=== PATIENT | male | born 1995 | race Caucasian/White ===

== ENCOUNTER 2022-12-29 13:25 | Emergency (ER) | payer BC ==
[~2022-12-29] VITALS: Ht 190.5 cm; Wt 90.7 kg
[2022-12-29 13:27] VITALS: BP 139/65
--- NOTE | 2022-12-29 13:41 | NUR ---
PT AMB TO BED 11.
[2022-12-29] MEDS ORDERED: KETOROLAC 30 MG/ML VIAL IM ONE (13:50)
[2022-12-29] MEDS ORDERED: IBUP-2213 PO (15:05)
[2022-12-29] MEDS ORDERED: LID5T TP (15:08)
--- NOTE | 2022-12-29 15:10 | NUR ---
ulnar gutter splint applied to R wrist, hand
--- NOTE | 2022-12-29 15:17 | NUR ---
Patient discharged with v/s stable. Written and verbal after care instructions given and explained. Patient alert, oriented and verbalized understanding of instructions. Ambulatory with steady gait. All questions addressed prior to discharge. ID band removed. Patient advised to follow up with PMD. Rx of LIDODERM, MOTRIN given. Patient educated on indication of medication including possible reaction and side effects. Opportunity to ask questions provided and answered.
== END 2022-12-29 15:22 | disposition home or self-care (01) ==
LOC: MED 13:25
DX: S62.316A Displaced fracture of base of fifth metacarpal bone, right hand, initial encounter for closed fracture (principal); X58.XXXA Exposure to other specified factors, initial encounter; Y93.71 Activity, boxing; Y92.89 Other specified places as the place of occurrence of the external cause; Y99.8 Other external cause status
CPT/HCPCS: 29125; 73130; 96372; 99283; J1885; Q0092